=== PATIENT | male | born 1965 | race Caucasian/White ===

== ENCOUNTER 2017-05-19 04:17 | Emergency (ER) | payer BC ==
--- NOTE | ~2017-05-19 | EKG ---
PATIENT: TATIANNA MCDOWELL UNIT #: [id number] Ventricular Rate: 88 BPM Atrial Rate: 88 BPM P-R Interval: 172 ms QRS Duration: 110 ms Q-T Interval: 368 ms QTC Calculation(Bezet): 445 ms P Converse: 53 degrees Calculated R Converse: -32 degrees Calculated T Converse: 48 degrees Diagnosis Line: Normal sinus rhythm Diagnosis Line: Left axis deviation Diagnosis Line: Incomplete right bundle branch block Diagnosis Line: Septal infarct (cited on or before 09-FEB-2016) Diagnosis Line: Abnormal ECG Diagnosis Line: When compared with ECG of 09-FEB-2016 08:56, Diagnosis Line: Vent. rate has increased BY 36 BPM Diagnosis Line: Nonspecific T wave abnormality has replaced Diagnosis Line: inverted T waves in Inferior leads Diagnosis Line: Nonspecific T wave abnormality, worse in Anterior Diagnosis Line: leads Diagnosis Line: Confirmed by YONATAN MONDRAGON MD ([id number]) on Diagnosis Line: 05/22/2017 11:02:57 AM INTERPRETING MD: GIANCARLO BONE
--- NOTE | ~2017-05-19 | CT16 ---
[facility] A Service [facility] RADIOLOGY TEXT RESULTS PATIENT: TATIANNA MCDOWELL LOCATION: SED : 69 UNIT #: [id number] AGE: [address]: Luis Eduardo Goodman MD SEX: M ORDER DR: [id number] [place] [id number] [id number] E MR#: [id number] #: [id number] NAME: TATIANNA MCDOWELL : 1965 SEX: M STUDY DATE/TIME: 05/19/2017 5:16 UNIT: SED ROOM: STUDY DESCRIPTION: CT Angio Chest for PE Attending Physician: Luis Eduardo Goodman M.D. Ordering Physician: Luis Eduardo Goodman M.D. Primary Care Physician: Fabian Nguyen M.D. MEDICAL IMAGING REPORT This report is preliminary unless electronic signature is present. EXAM CTA chest PE protocol. INDICATIONS Chest pain, shortness of air for the past 20 minutes. PROCEDURE Contrast-enhanced CTA of the chest attention on opacification pulmonary arteries. Coronal, 3-D, MIP, sagittal reformatted images reconstructed and submitted. This CT exam was performed with one or more of the following radiation dose reduction techniques: Automatic exposure control, adjustment of mA and/or kV according to patient size, and iterative reconstruction. COMPARISON None. FINDINGS No evidence for pulmonary embolus. No evidence for acute aortic injury. There are a few extrapleural nodules along the posterior right and left hemithorax. These have been present since at least 2009 and are very similar. Emphysema. No dense consolidation. No aggressive appearing bone lesion. IMPRESSION 1. No acute findings. No evidence for pulmonary embolus. 2. Emphysema. 3. 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 [facility] A [facility] RADIOLOGY TEXT RESULTS PATIENT: TATIANNA MCDOWELL LOCATION: SED : 69 UNIT #: [id number] AGE: [address]: Luis Eduardo Goodman MD SEX: M ORDER DR: Dictated by... Devang Eduardo M.D. THIS IS AN ELECTRONICALLY VERIFIED REPORT Devang Eduardo M.D. at 05/24/2017 3:02 PM EED/loli TD: 05/19/2017 13:28 JOB #: [id number] MEDICAL IMAGING REPORT Page 1 of 1
[~2017-05-19 04:17] MED LIST: ALPRAZOLAM PO; ASPIRIN81 MG PO; ELAVIL PO; FLEXERIL10 MG PO; LIDODERM30 EA TOP; LOPRESSOR PO; LORTAB 10-3251 EACH PO; LYRICA300 MG PO; NEURONTIN PO; NICOTINE TRANSD21 MG EXT; NORVASC PO; OXYCODONE HCL15 MG PO; OXYCONTIN15 MG PO; PERCOCET 10/31 UDTA1 PO; PERCOCET 10/3251 TAB PO
[2017-05-19] MEDS ORDERED: CHOLESTEROL MED (04:28)
[2017-05-19] MEDS ORDERED: BP MED (04:28)
[2017-05-19] MEDS ORDERED: HYDROCODONE PO (04:28)
[2017-05-19 04:49] LABS: BASOPHIL# 0.1 X10e3 (0-0.3); BASOPHIL% 0.9 % (0-2.5); EOSINOPHIL# 0.3 X10e3 (0-0.7); EOSINOPHIL% 3.2 % (0.0-7.0); HEMATOCRIT 44.9 % (38.0-50.0); HEMOGLOBIN 15.3 gm/dL (13.0-16.0); LYMPHOCYTE# 2.7 X10e3 (1.0-3.5); LYMPHOCYTE% 31.4 % (17.0-45.0); MEAN CELL VOLUME 88.5 FL (83-96); MEAN CORPUSCULAR HEMOGLOBIN 30.3 PG (28-34); MEAN CORPUSCULAR HGB CONC 34.2 g/dL (30-36); MEAN PLATELET VOLUME 8.7 FL (6.5-11.5); MONOCYTE# 0.6 X10e3 (0-1.0); MONOCYTE% 7.3 % (3.0-12.0); NEUTROPHIL# 4.8 X10e3 (1.5-7.1); NEUTROPHIL% 57.2 % (40-75); PLATELET COUNT 221 X10e3 (140-420); RED BLOOD COUNT 5.07 X10e (3.90-5.60); RED CELL DISTRIBUTION WIDTH 13.4 % (11.0-15.5); WHITE BLOOD COUNT 8.5 X10e3 (4.0-10.5)
[2017-05-19 04:50] LABS: DIFF IND NO
[2017-05-19 04:52] LABS: PROTHROMBIN TIME (PATIENT) 11.4 SECONDS (9.5-12.4)
[2017-05-19 05:00] LABS: PARTIAL THROMBOPLASTIN TIME 29.2 SECONDS (25.6-38.1)
[2017-05-19 05:01] LABS: ALCOHOL BLOOD <5 mg/dL (0); ALKALINE PHOSPHATASE 75 U/L (32-92); ALT (SGPT) 25 U/L (10-40); AST (SGOT) 23 U/L (10-42); BILIRUBIN, DIRECT <0.1 mg/dL (0.0-0.2); BILIRUBIN,INDIRECT 0.2 mg/dL (0.0-0.9); BILIRUBIN,TOTAL 0.3 mg/dL (0.2-2.0); BLOOD UREA NITROGEN 12 mg/dL (9-23); CALCIUM SERUM 8.9 mg/dL (8.4-10.2); CARBON DIOXIDE 25 mmol/L (22-31); CHLORIDE 110 mmol/L (100-111); CREATININE SERUM 0.8 mg/dL (0.6-1.4); GLOM FILT RATE Estimated 104.2 mL/min (>60); GLUCOSE FASTING 97 mg/dL (70-110); POTASSIUM 3.3 mmol/L (3.5-5.1); PROTEIN TOTAL SERUM 6.7 g/dL (6.0-8.3); SODIUM 140 mmol/L (135-145)
[2017-05-19 05:42] LABS: POC - CKMB <1.0 ng/mL (0.0-7.9); POC - TROPONIN <0.05 ng/mL (<=0.05)
== END 2017-05-19 07:28 | disposition home or self-care (01) ==
LOC: SED 04:17
PROVIDERS: Emergency Medicine
DX: K21.9 Gastro-esophageal reflux disease without esophagitis (principal); F41.9 Anxiety disorder, unspecified; F17.200 Nicotine dependence, unspecified, uncomplicated; Z90.49 Acquired absence of other specified parts of digestive tract; Z79.899 Other long term (current) drug therapy
CPT/HCPCS: 36415; 71275; 80048; 80076; 82553; 84484; 85025; 85610; 85730; 93005; 96374; 96375; 99285; G0480; J2060; J2270; J2405; Q9967